=== PATIENT | female | born 1985 | race Caucasian/White ===

== ENCOUNTER → 2016-11-02 | Outpatient (CLI) | payer BC, OTHER ==
[~2016-11-02] MED LIST: ACET1TAB43 PO; ACHD5005 PO; AMLO2.5T PO; CHOL10003 PO; DOCU100C37 PO; FERR-74 PO; FLAX100031 PO; FRS325T PO; IBP600T1 PO; IBUP-1773 PO; IRON1TAB94 PO; PNV1TABL65 PO; PREN1TAB71 PO
--- NOTE | 2016-11-02 15:44 | Diagnostic Imaging Report ---
INDICATION: anatomy survey. TECHNIQUE: Multiple real-time grayscale images were obtained over the gravid uterus. COMPARISON: None. FINDINGS: There are live twin gestations which are dichorionic diamniotic per provided history. The following biometrical data for each fetus are as follows: Fetus A: Fetus A is in cephalic presentation and the amount of amniotic fluid is visually appropriate. The placenta is anteriorly located and there is no evidence of previa. Heart rate measures 160 beats per minute for fetus A. The cisterna magna, cerebral ventricles, four-chamber heart, stomach, umbilical cord insertion, and urinary bladder are normal. The spine and kidneys are suboptimally evaluated. Fetus B. Fetus B is in transverse lie and the amount of amniotic fluid is visually appropriate. Placenta is anteriorly located without previa. Heart rate is 120 beats per minute. The cerebellum, cisterna magna, four-chamber heart, stomach, kidneys, urinary bladder, and umbilical cord insertion are normal. The spine is suboptimally evaluated. IMPRESSION: 1. Live twin gestation. 2. anatomy survey is normal for both fetuses, with the exception of the spines being unable to be adequately assessed. Additionally, the kidneys of baby A were suboptimally visualized. 3. Below biometric data applies to fetus B. Biometrical measurements are as follows: Biparietal 4.6 cm, age 20 weeks 0 days. Head circumference 16.4 cm, age 19 weeks 1 days. Abdominal circumference 15.3 cm, age 20 weeks 4 days. Femur length 2.8 cm, age 18 weeks 4 days. Sonographic estimate age: 19 weeks 4 days. Sonographic estimated date of delivery: 03/25/17. Estimated Weight: 298 gm (+/- 44 gm). LMP percentile: 96%. heart rate: 160 beats per minute. number: 1 of 1. Dictated by: Dictated on workstation # [id number]
--- NOTE | 2016-11-03 08:10 | Diagnostic Imaging Report ---
INDICATION: anatomy survey TECHNIQUE: Multiple real-time grayscale images were obtained over the gravid uterus. COMPARISON: None FINDINGS: There are live twin gestations which are dichorionic diamniotic per provided history. The following biometrical data for each fetus are as follows: Fetus A: Fetus A is in cephalic presentation and the amount of amniotic fluid is visually appropriate. The placenta is anteriorly located and there is no evidence of previa. Heart rate measures 160 beats per minute for fetus A. The cisterna magna, cerebral ventricles, four-chamber heart, stomach, umbilical cord insertion, and urinary bladder are normal. The spine and kidneys are suboptimally evaluated. Fetus B. Fetus B is in transverse lie and the amount of amniotic fluid is visually appropriate. Placenta is anteriorly located without previa. Heart rate is 120 beats per minute. The cerebellum, cisterna magna, four-chamber heart, stomach, kidneys, urinary bladder, and umbilical cord insertion are normal. The spine is suboptimally evaluated. IMPRESSION: 1. Live twin gestation. 2. anatomy survey is normal for both fetuses, with the exception of the spines being unable to be adequately assessed. Additionally, the kidneys of baby A were suboptimally visualized. 3. Below biometric data applies to fetus B. Biometrical measurements are as follows: Biparietal 4.4 cm, age 19 weeks 2 days. Head circumference 15.7 cm, age 18 weeks 5 days. Abdominal circumference 13.9 cm, age 19 weeks 2 days. Femur length 2.8 cm, age 18 weeks 4 days. Sonographic estimate age: 19 weeks 0 days. Sonographic estimated date of delivery: 03/29/17. Estimated Weight: 261 gm (+/- 38 gm). LMP percentile: 72%. heart rate: 120 beats per minute. number: 1 of 1. Dictated by: Dictated on workstation # [id number]
== END ==
LOC: RAD 11:52
PROVIDERS: ATTEND Obstetrics & Gynecology
DX: O30.042 Twin pregnancy, dichorionic/diamniotic, second trimester (principal); Z3A.19 19 weeks gestation of pregnancy
CPT/HCPCS: 76805; 76810

== ENCOUNTER 2017-03-08 12:28 | Outpatient (CLI) | payer OTHER ==
[~2017-03-08] VITALS: Ht 165.1 cm; Wt 86.2 kg
[~2017-03-08 12:28] MED LIST changes: -ACET1TAB43 PO; -AMLO2.5T PO; -DOCU100C37 PO; -FERR-74 PO; -IBUP-1773 PO; -PNV1TABL65 PO
[2017-03-08] MEDS ORDERED: PNV1TABL65 PO (12:42)
[2017-03-08 12:44] VITALS: BP 142/97
[2017-03-08 14:02] LABS: PROTEIN/CREATININE RATIO 0.37
== END 2017-03-08 14:49 ==
LOC: PREOP 12:28
PROVIDERS: ATTEND Obstetrics & Gynecology
DX: Z01.818 Encounter for other preprocedural examination (principal); O30.003 Twin pregnancy, unspecified number of placenta and unspecified number of amniotic sacs, third trimester; O32.1XX1 Maternal care for breech presentation, fetus 1; Z3A.00 Weeks of gestation of pregnancy not specified
CPT/HCPCS: 82570; 84156; 87081

== ENCOUNTER 2017-03-08 16:50 | Inpatient (IN) | payer OTHER ==
[2017-03-08] VITALS (21 sets, daily range): BP systolic 126–162; BP diastolic 70–101
[~2017-03-08] VITALS: Ht 165.1 cm; Wt 86.2 kg
[~2017-03-08 16:50] MED LIST changes: +PNV1TABL65 PO
--- OUTSIDE RECORDS SUMMARY | 2017-03-08 16:57 | XMS REPORT | Continuity of Care Document ---
Author Author [employer] Organization [facility] Address Unknown Phone Unavailable Care Team Providers Care Nutrition Faculty Member Name Role Phone [employer] Unavailable Unavailable Problems Medications Allergies, Adverse Reactions, Alerts Immunizations Results Vital Signs Encounters Location Location Details Encounter Type Encounter Number Reason For Visit Attending Provider ADM Date DC Date Status Source O 02/11/2017 02/11/2017 Active [facility] Procedures Plan of Care Social History Assessment and Plan Family History Value Date Source Advance Directives Order Name Results Value Date Source
--- OUTSIDE RECORDS SUMMARY | 2017-03-08 16:58 | XMS REPORT | Encounter Summary ---
Author Author [facility] Organization [facility] Address Unknown Phone Unavailable Care Team Providers Care Cable Television Technician Name Role Phone PCP Unavailable Reason for Visit * Reason Comments Ultrasound Encounter Details Date Type Department Care Team Description 02/11/2017 Clinical [facility] Screening, , for Support Physicians - OBGYN [place]formation [place] [address] ultrasound (Primary Dx) [place] [address] Social History Tobacco Use Types Packs/Day Years Used Date Never Smoker Sex Assigned at Date Recorded Not on file as of this encounter Progress Notes * Adwoa Cardoso MA - 02/11/2017 11:00 AM CDT Minoo Cochran presents for an ultrasound encounter. Past Medical, Surgical, Family & Social History; Medications & Allergies contained in the electronic record below were not reviewed today and may not be up-to-date. Please see OBGYN report for all documentation related to this encounter. in this encounter Plan of Treatment Not on fileas of this encounter Results * ULTRASOUND [facility] ORDER (02/11/2017) Specimen Performing Laboratory IN CLINIC in this encounter Visit Diagnoses Diagnosis Screening, , for malformation by ultrasound - Primary Encounter for routine screening for malformation using ultrasonics in this encounter
--- OUTSIDE RECORDS SUMMARY | 2017-03-08 16:58 | XMS REPORT | Clinical Summary ---
Author Author [facility] Organization [facility] Address Unknown Phone Unavailable Care Team Providers Care Warhead Maintenance Specialist Name Role Phone PCP Unavailable Source Comments Some departments are not documenting in the electronic medical record. If you do not see the information that you expected, contact Release of Information in the Health Information Management department at [phone] for further assistance in locating additional records.[facility] Allergies No Known Allergies Current Medications Prescription Sig. Disp. Refills Start End Date Status Date vitamins, w/iron Take 1 tablet by mouth Active & folate 65/1 mg daily. Indications: tabIndications: CALCIUM CARBONATE Take by mouth. Active (CALCIUM 500 PO) Active Problems Problem Noted Date Dichorionic diamniotic twin in second trimester 12/17/2016 Encounters Date Type Specialty Care Team Description 02/11/2017 Clinical High Risk Screening, , for Support malformation by ultrasound (Primary Dx) 12/17/2016 Office Visit High Risk Ryder Lam DO Dichorionic diamniotic twin in second trimester 12/17/2016 Clinical High Risk Screening, , for Support malformation by ultrasound (Primary Dx) from Last 3 Months Social History Tobacco Use Types Packs/Day Years Used Date Never Smoker Currently Estimated Date of Delivery Comments Yes Sex Assigned at Date Recorded Not on file Last Filed Vital Signs Vital Sign Reading Time Taken Blood Pressure 111/57 12/17/2016 8:32 AM CDT Pulse - - Temperature - - Respiratory Rate - - Oxygen Saturation - - Inhaled Oxygen - - Concentration Weight 77.8 kg (171 lb 9.6 oz) 12/17/2016 8:32 AM CDT Height 157.5 cm (5' 2") 12/17/2016 8:32 AM CDT Body Mass Index 31.39 12/17/2016 8:32 AM CDT Plan of Treatment Health Maintenance Due Date Last Done Comments PHYSICAL (COMPREHENSIVE) 02/03/1991 EXAM PERTUSSIS VACCINE 02/03/1995 TETANUS VACCINE 02/03/2001 CERVICAL CANCER SCREENING 02/03/2014 INFLUENZA VACCINE 11/16/2016 Results * [facility]OUND [facility] ORDER (02/11/2017) Only the most recent of 2 results within the time period is included. Specimen Performing Laboratory IN CLINIC from Last 3 Months
--- OUTSIDE RECORDS SUMMARY | 2017-03-08 16:59 | XMS REPORT | Encounter Summary ---
Author Author [facility] Organization [facility] Address Unknown Phone Unavailable Care Team Providers Care Hydroelectric Station Operator Name Role Phone PCP Unavailable Reason for Visit * Reason Comments Other DI/DI Twins Encounter Details Date Type Department Care Team Description 12/17/2016 Office Visit [facility] Ryder Lam DO Dichorionic diamniotic Physicians - OBGYN [address] twin in second [address] [place] [address]28 trimester [place], [place] [id number] Social History Tobacco Use Types Packs/Day Years Used Date Never Smoker Sex Assigned at Date Recorded Not on file as of this encounter Last Filed Vital Signs Vital Sign Reading Time Taken Blood Pressure 111/57 12/17/2016 8:32 AM CDT Pulse - - Temperature - - Respiratory Rate - - Oxygen Saturation - - Inhaled Oxygen - - Concentration Weight 77.8 kg (171 lb 9.6 oz) 12/17/2016 8:32 AM CDT Height 157.5 cm (5' 2") 12/17/2016 8:32 AM CDT Body Mass Index 31.39 12/17/2016 8:32 AM CDT in this encounter Progress Notes * Ryder Lam DO - 12/17/2016 9:30 AM CDT Minoo is a 31 y/o with dichorionic, diamniotic twin gestation at 24W4D who presents for consultation at the request of Dr. Harden in [place], [place]. Minoo has had 2 previous, uncomplicated pregnancies that went to term. Neither Minoo or her report any significant family or genetic history. I outlined the risks of twin gestation which include the increased risk of and growth restriction. I also emphasized that there are no means by which one can prevent such complications. I explained the rationale for cervical length assessment at 20-22 weeks and serial scans for growth once a month beginning at 28 weeks. We also discussed the different modes of delivery based on position and delivery attendants comfort level with a twin vaginal delivery. I explained that is was safe to undergo a vaginal delivery with twins as long as the presenting twin is cephalic prior to the onset of labor. We also discussed that the best available evidence recommends delivery of dichorionic twins once 38 weeks has been achieved in the absence of any other obstetric complications. Plan: -Monitor growth Q 4 weeks -Initiate weekly surveillance at 32 weeks (either twice weekly NSTs or once weekly BPPs; once weekly BPPs with umbilical Doppler interrogation) -Deliver at 37-38 weeks GA; vaginal delivery preferred as long as presenting twin is vertex I will schedule Minoo to return to see us at 32 weeks GA to reevaluate anatomy and growth. I will leave it to Dr. Harden to decide if he would like all of the monthly growth ultrasounds to occur here at our office or if he is comfortable with them being done at his office in [place]. 15 minutes of face to face time was spent with Minoo of which >50% of that time was directed toward counseling and coordinating her care. * Nadine Fournier MA - 12/17/2016 9:30 AM CDT 1. Have you or your sexual partner traveled away from [place] in the last 12 weeks? No in this encounter Plan of Treatment Not on fileas of this encounter Visit Diagnoses Diagnosis Dichorionic diamniotic twin in second trimester Twin , antepartum in this encounter
--- OUTSIDE RECORDS SUMMARY | 2017-03-08 16:59 | XMS REPORT | Continuity of Care Document ---
Author Author [facility] Organization [facility] Address Unknown Phone Unavailable Allergies Active Description Code Type Severity Reaction Onset Reported/Identified Relationship to Patient Clinical Status Yes No Known Drug Allergies [id number] Drug Allergy Unknown N/ A 03/08/2017 Medications Problems Date Dx Coded Attending Type Code Diagnosis Diagnosed By 11/08/2016 URSZULA EDGE DO Ot O30.042 TWIN , DICHORIONIC/DIAMNIOTIC , 11/08/2016 URSZULA EDGE DO Ot Z3A.19 19 WEEKS GESTATION OF 11/10/2016 URSZULA EDGE DO Ot O30.042 TWIN , DICHORIONIC/DIAMNIOTIC , 11/10/2016 URSZULA EDGE DO Ot Z3A.19 19 WEEKS GESTATION OF 11/10/2016 URSZULA EDGE DO S Ot O30.042 TWIN , DICHORIONIC/DIAMNIOTIC , 11/10/2016 URSZULA EDGE DO S Ot Z3A.19 19 WEEKS GESTATION OF 11/10/2016 URSZULA EDGE DO Ot O30.042 TWIN , DICHORIONIC/DIAMNIOTIC , 11/10/2016 URSZULA EDGE DO S Ot Z3A.19 19 WEEKS GESTATION OF 11/12/2016 URSZULA EDGE DO Ot O30.042 TWIN , DICHORIONIC/DIAMNIOTIC , 11/12/2016 KELY MEADE URSZULA S Ot Z3A.19 19 WEEKS GESTATION OF Procedures Results Test Result Range Urine protein/creatinine mass ratio - 03/08/17 13:35 Urine protein measurement (mass/volume) 10 mg/dL 6-12 Urine creatinine measurement (mass/volume) 27 mg/dL 30-125 Urine protein/creatinine mass ratio 0.37 NRG Encounters ACCT No. Visit Date/Time Discharge Status Pt. Type Provider Facility Loc./Unit Complaint [id number] 03/08/2017 12:28:00 2016 14:49:00 DIS Outpatient URSZULA EDGE DO [facility] PREOP MALPRESENTATION/UNSTABLE LIE/TWIN [id number] 11/02/2016 11:52:00 2016 23:59:59 CLS Outpatient URSZULA EDGE DO [facility] RAD DIAMNIOTIC TWIN 2ND TRIMESTER O30.042 [id number] 10/30/2012 07:15:00 2012 10:35:00 DIS Inpatient [id number] 03/08/2017 16:50:00 ACT Inpatient URSZULA EDGE DO [facility] LDRP PREECLAMPSIA
--- OUTSIDE RECORDS SUMMARY | 2017-03-08 16:59 | XMS REPORT | Encounter Summary ---
Author Author [facility] Organization [facility] Address Unknown Phone Unavailable Care Team Providers Care Chair Inspector Name Role Phone PCP Unavailable Reason for Visit * Reason Comments Ultrasound Encounter Details Date Type Department Care Team Description 12/17/2016 Clinical [facility] Screening, , for Support Physicians [place] [address] ultrasound (Primary Dx) [place] [address] Social History Tobacco Use Types Packs/Day Years Used Date Never Smoker Sex Assigned at Date Recorded Not on file as of this encounter Progress Notes * Adwoa Cardoso MA - 12/17/2016 8:30 AM CDT Minoo Cochran presents for an ultrasound encounter. Past Medical, Surgical, Family & Social History; Medications & Allergies contained in the electronic record below were not reviewed today and may not be up-to-date. Please see OBGYN report for all documentation related to this encounter. in this encounter Plan of Treatment Not on fileas of this encounter Results * ULTRASOUND [facility] ORDER (12/17/2016) Specimen Performing Laboratory IN CLINIC in this encounter Visit Diagnoses Diagnosis Screening, , for malformation by ultrasound - Primary Encounter for routine screening for malformation using ultrasonics in this encounter
--- NOTE | 2017-03-08 17:06 | History & Physical-OB ---
OB - Chief Complaint & HPI Date/Time Date of Admission: Date of Admission: Mar 08, 2017 at 16:50 Time Seen by Provider: 16:50 Chief Complaint/History OB-Reason for Admission/Chief: Induction of Labor Hx : 3 Hx Para: 2 Expected Date of Delivery: Apr 02, 2017 Gestational Age in Weeks: 36 Gestational Age in Days: 3 Indication for induction: other (PreE, Twin gestation) Admission Nurse Assessment Rev: Yes History of Labs A pos Antibody neg RI RPR NR HBsAg NR HIV NR GC neg GBS neg Allergies and Home Medications Allergies Coded Allergies: No Known Drug Allergies (Unverified , 03/08/17) Home Medications Pnv with Ca,No.72/Iron/FA 1 Each Tablet, 1 EACH PO DAILY, (Reported) OB - History Hx of Present Care: Yes Ultrasounds: Abnormal US findings (Dichorionic/Diamniotic twin gestation) Obstetrical Complications: Pre-eclampsia, Other (Twin gestation) Medical Complications: None, Other Obstetrical History Hx Termination: No Hx Multiple Gestation: No Hx Stillbirth: No Hx Complication: No Hx Induced Hypertens: No Hx Maternal Gestational Diabet: No Delivery History Hx Dystocia: No Hx Large For Gestational Age I: No Hx Small for Gestational Age I: No Hx Section: No Hx Vaginal Delivery Post C-Sec: No Hx Blood Disorders: No Adverse Rxn to Tranfusion: No Patient Past Medical History n/a Social History/Family History HIV/AIDS: No Sexually Transmitted Disease: No Immunizations Hepatitis A: Yes Hepatitis B: Yes Tetanus Booster (TDap): Unknown OB - Admission Exam Physical Exam HEENT: NCAT Heart: Rhythm Normal Lungs: Clear Abdomen: Gravid Extremities: Normal Reflexes: Normal Cervical Dilatation: 3cm Effacement: 75% Station: -1 Membranes: Intact Heart Rate: 130's Accelerations: Accelerations Present Decelerations: No Decelerations Short Term Variability: Present Assisted Variability: Average (6-25) Contractions on Admission: 6-10 Minutes Apart Intensity: Mild OB - Assessment/Plan/Diagnosis Assessment Assessment: induction of labor Plan Plan: Induction Induction Method: per Misoprostol Protocol Discharge Diagnosis Diagnosis: 32yo @ 36.3 Di/Di Twins Mild PreE GBS neg URSZULA EDGE DO Mar 08, 2017 17:06
[2017-03-08] MEDS: D5 LR IV SOLUTION 1,000 ML IV SCH (17:27)
[2017-03-08] MEDS ORDERED: NS IV 1000 ML 1,000 ML ONE (17:28)
[2017-03-08 17:30] LABS: BASOPHILS % (AUTO) 0 % (0-10); EOSINOPHILS % (AUTO) 1 % (0-10); LYMPHOCYTES # (AUTO) 1.8 X 10^3 (1.0-4.0); LYMPHOCYTES % (AUTO) 22 % (12-44); MEAN CORPUSCULAR HEMOGLOBIN 29 PG (25-34); MEAN CORPUSCULAR HGB CONC 34 G/DL (32-36); MEAN CORPUSCULAR VOLUME 86 FL (80-99); MEAN PLATELET VOLUME 13.2 FL (7.4-10.4); MONOCYTES % (AUTO) 12 % (0-12); NEUTROPHILS # (AUTO) 5.5 X 10^3 (1.8-7.8); NEUTROPHILS % (AUTO) 66 % (42-75); PLATELET COUNT 139 10^3/uL (130-400); RED BLOOD COUNT 4.53 10^6/uL (4.35-5.85); RED CELL DISTRIBUTION WIDTH 13.5 % (10.0-14.5); WHITE BLOOD COUNT 8.3 10^3/uL (4.3-11.0)
[2017-03-08] MEDS ORDERED: NS IV 500 ML 500 ML IV ONE (17:30)
[2017-03-08] MEDS ORDERED: MISOPROSTOL 100 MCG (CYTOTEC) TAB PO NR (18:15)
[2017-03-08] MEDS ORDERED: INFLUENZA TRIvalent 2017-2018 0.5 ML/45 MCG SYR IM ONE (18:30)
[2017-03-08] MEDS ORDERED: SUFENTA 0.6MCG/ML BUPIVA 0.125 100 ML ONE (21:59)
[2017-03-08] MEDS ORDERED: CATHETER FLUSH 10 ML SYR IV SCH (22:00)
[2017-03-08] MEDS ORDERED: fentaNYL INJECTION 100 MCG/2 ML AMP ONE (22:14)
[2017-03-08] MEDS ORDERED: LIDOCAINE PF 2% 5 ML (XYLOCAINE) VIAL ONE (22:14)
[2017-03-08] MEDS ORDERED: BUPIVACAINE 0.25% 30 ML (SENSORCAINE) VIAL ONE (22:14)
[2017-03-08] MEDS ORDERED: LACTATED RINGERS 1,000 ML IV SCH (22:55)
[2017-03-08] MEDS: EPIDURAL (SUFENTA 0.6MCG/ML BUPIVA 0.125%) 100 ML BAG EPI PRN (22:55)
[2017-03-08] MEDS ORDERED: ONDANSETRON 4 MG/2 ML (SDV) Z0FRAN IV PRN (23:00)
[2017-03-08] MEDS ORDERED: diphenhydrAMINE 50 MG/ML INJ (BENADRYL) IV PRN (23:00)
[2017-03-08] MEDS ORDERED: NALOXONE 0.4 MG/ML 1 ML (NARCAN) VIAL IV PRN (23:00)
[2017-03-09] VITALS (59 sets, daily range): BP systolic 111–171; BP diastolic 61–98
[2017-03-09] MEDS: D5 LR IV SOLUTION 1,000 ML IV SCH ×2 (01:10→08:16)
[2017-03-09] MEDS ORDERED: OXYTOCIN/NORMAL SALINE 500 ML IV ONE (06:08)
[2017-03-09] MEDS ORDERED: OXYTOCIN/NORMAL SALINE 500 ML IV SCH ×2 (06:20→12:10)
[2017-03-09] MEDS: EPIDURAL (SUFENTA 0.6MCG/ML BUPIVA 0.125%) 100 ML BAG EPI PRN (06:37)
[2017-03-09] MEDS ORDERED: CARBOPROST (HEMABATE) 250 MCG/ML AMP IM ONE (11:11)
[2017-03-09] MEDS ORDERED: TETANUS,DIPTH,PERTUSS P/F (BOOSTRIX) 0.5 ML VIAL IM ONE (12:15)
[2017-03-09] MEDS ORDERED: DIBUCAINE (NUPERCAINAL) 1% OINT 30 GM TOP PRN (12:15)
[2017-03-09] MEDS ORDERED: MEASLES,MUMPS,RUBELLA 1 EA INJ SQ ONE (12:15)
--- NOTE | 2017-03-09 12:16 | OB Labor & Delivery Record ---
L&D History Date of Service Date of Service: Mar 09, 2017 History Expected Date of Delivery: Apr 02, 2017 Gestational Age in Weeks: 36 Hx : 3 Hx Para: 2 Complications Events: Routine care (Mild PreE at 36 weeks with Di Di Twins) Operative Indications (Cesarea: N/A-Vaginal Delivery Intrapartal Events: None L&D Stage1 Stage One Onset of Labor - Date: Mar 09, 2017 Monitors and Tracing Monitor Mode: External Heart Rate: 130 Monitor Accelerations: Uniform Monitor Decelerations: Variable Station: -2 Shelter Variability: Average (6-10) Short Term Variability: Present Presentation: Vertex Vital Signs VS - Last 72 Hours, by Label 03/08/17 03/08/17 03/08/17 03/08/17 18:10 19:30 22:30 22:36 Temp 96.6 97.7 Pulse 72 73 62 78 Resp 18 18 18 18 B/P (MAP) 140/93 158/91 139/87 143/87 Pulse Ox 99 97 O2 Delivery Room Air 03/08/17 03/08/17 03/08/17 03/08/17 22:39 22:42 22:45 22:48 Pulse 75 86 85 90 Resp 18 18 18 18 B/P (MAP) 146/93 156/101 162/86 161/92 Pulse Ox 99 99 98 98 03/08/17 03/08/17 03/08/17 03/08/17 22:51 22:54 22:58 23:01 Pulse 75 74 71 92 Resp 18 18 18 18 B/P (MAP) 154/79 160/86 161/82 127/77 Pulse Ox 98 98 98 98 03/08/17 03/08/17 03/08/17 03/08/17 23:04 23:07 23:10 23:13 Pulse 67 83 87 91 Resp 18 18 18 18 B/P (MAP) 131/73 134/85 158/89 156/77 Pulse Ox 98 98 98 98 03/08/17 03/08/17 03/08/17 03/08/17 23:19 23:22 23:24 23:30 Pulse 64 62 73 72 Resp 18 18 18 18 B/P (MAP) 128/70 130/74 127/75 126/72 Pulse Ox 98 97 97 98 11/21/17 03/09/17 03/09/17 03/09/17 23:45 00:00 00:15 00:30 Pulse 64 84 83 68 Resp 18 18 18 18 B/P (MAP) 128/74 120/72 130/77 116/63 Pulse Ox 97 98 98 97 03/09/17 03/09/17 03/09/17 03/09/17 00:45 01:00 01:15 01:30 Temp 96.9 Pulse 83 68 68 78 Resp 18 18 18 18 B/P (MAP) 117/61 111/64 132/75 144/67 Pulse Ox 98 96 98 98 03/09/17 03/09/17 03/09/17 03/09/17 01:45 02:00 02:15 02:30 Pulse 68 62 61 62 Resp 18 18 18 18 B/P (MAP) 116/65 115/68 115/71 111/68 Pulse Ox 98 97 97 97 03/09/17 03/09/17 03/09/17 03/09/17 02:45 03:00 03:15 03:30 Pulse 65 53 52 56 Resp 18 18 18 18 B/P (MAP) 120/77 117/75 120/70 125/77 Pulse Ox 98 97 98 98 03/09/17 03/09/17 03/09/17 03/09/17 03:45 04:00 04:15 04:30 Temp 96.9 Pulse 58 55 60 57 Resp 18 18 18 18 B/P (MAP) 121/76 122/74 124/78 112/71 Pulse Ox 99 98 98 98 03/09/17 03/09/17 03/09/17 03/09/17 04:45 05:00 05:15 05:30 Pulse 65 59 61 57 Resp 18 18 18 18 B/P (MAP) 130/79 113/78 124/76 134/79 Pulse Ox 99 99 99 99 03/09/17 03/09/17 03/09/17 03/09/17 05:45 06:00 06:15 06:30 Pulse 64 62 62 62 Resp 18 18 18 18 B/P (MAP) 117/76 117/77 124/77 129/81 Pulse Ox 98 98 99 98 03/09/17 03/09/17 03/09/17 03/09/17 06:45 07:00 07:15 07:30 Temp 96.6 Pulse 73 61 62 62 Resp 18 18 18 18 B/P (MAP) 140/79 140/90 141/77 171/87 Pulse Ox 98 03/09/17 03/09/17 03/09/17 03/09/17 07:45 08:00 08:15 08:30 Pulse 73 58 65 Resp 16 16 16 16 B/P (MAP) 137/89 142/86 147/96 03/09/17 03/09/17 03/09/17 03/09/17 08:45 09:00 09:15 09:30 Temp 96.3 Pulse 71 66 66 86 Resp 20 20 20 16 B/P (MAP) 149/84 138/81 156/85 138/93 03/09/17 03/09/17 03/09/17 09:45 10:00 10:15 Pulse 75 83 67 Resp 16 16 16 B/P (MAP) 142/91 135/81 143/81 Rupture of Membranes Spontaneous Ruture of Membrane: Yes Amniotic Membrane Rupture Time: 0800 Amniotic Membrane Fluid Desc.: Clear Induction/Anesthesia Epidural Cath Placement - Time: 2247 Progress/Notes Monitoring of twins was performed intrapartum of both by both scalp electrode and external auscultation. Fetus a had occasional variable decelerations but overall a reassuring tracing, and fetus B had a reactive tracing the integrity of labor. L&D Stage2 Stage Two Stage II Date: Mar 09, 2017 Monitors and Tracing Monitor Mode: External Heart Rate: 130 Monitor Accelerations: Uniform Monitor Decelerations: Variable Trust Operations Assistant Variability: Average (6-10) Short Term Variability: Present Position: Right Occiput Anterior Cord Descript/Complications Complications Fetus a was delivered L OP over intact perineum and a first-degree midline perineal laceration was noted. Anterior posterior shoulders delivered and the was brought onto the mother's abdomen where the cord was doubly clamped and cut and marked with 1 cord clamp. Cord blood is collected. Amniotomy is performed of the second presenting twin. Clear fluid is noted at time of rupture. Maternal pushing commenced shortly thereafter, after 2 maternal pushes the delivered ROP over the same with no extension in laceration. The anterior posterior shoulder delivered incidences brought onto maternal abdomen where the cord is doubly clamped and cut and marked with 2 cord clamps. Cord blood is collected. Intact placenta is delivered spontaneously thereafter. IV Pitocin is initiated to facilitate uterine contractions Delivery Type Delivery Method: Spontaneous Vaginal Anterior Shoulder: Right Episiotomy/Perineal Laceration Laceraction(s)/Extensions: Yes Episiotomy Description: Midline, Perineal Extension/lac, 1st degree Degree (describe repair) Midline perineal laceration repaired using 3-0 repeat Vicryl suture in usual fashion Condition of Infant Delivery 1 minute Comment: 8,8 5 minute Comment: 9,9 Condition of Infant Condition of : Living Exam: No Observed Abnormalities Live male infants baby A weighing 6 lbs. 12 oz. Apgars of 8 and 9, baby B measuring 7 lbs. 12 oz. Apgars of 8 and 9 Resuscitation Resuscitation: N/A - Spontaneous Resp L&D Stage3 Stage Three Stage III Date: Mar 09, 2017 Pictocin Pitocin Administration mu/min: 2 Pitocin ml/hr: 6 Pitocin Administration Comment: Pitocin started per dr order Placenta Delivery Placenta Delivery: Spontaneous Delivery Summary Summary Estimated blood loss (mL): 400 Attending at delivery: Zeb Edge DO Condition of Delivery Examined: Cervix Examined, Uterus Explored Post Hemorrhage: No Condition of Mother stable Condition of Infant (s) stable ZEB EDGE DO Mar 09, 2017 12:16
--- NOTE | 2017-03-09 12:42 | Anesthesia-Regional Post-Op ---
Regional Patient Condition Mental Status: Alert, Oriented x3 Circulation: Same as Pre-Op Headache: Absent Sensation: Full Recovery Motor Block: Absent Post Op Complications Complications None Follow Up Care/Instructions Patient Instructions None needed. Anesthesia/Patient Condition Patient is doing well, no complaints, stable vital signs, no apparent adverse anesthesia problems. No complications reported per nursing. D/C home per [facility] Criteria: No RJ CISNEROS CRNA Mar 09, 2017 12:42
[2017-03-09] MEDS: IBUPROFEN 600 MG (MOTRIN) TAB PO SCH ×3 (13:02→23:48)
[2017-03-09] MEDS: WITCH HAZEL(TUCKS) 40 EA JAR TOP PRN (13:03)
[2017-03-09] MEDS: BENZOCAINE/MENTHOL (DERMOPLAST) 56 ML CAN TP PRN (13:03)
[2017-03-09] MEDS ORDERED: CATHETER FLUSH 10 ML SYR IV SCH (14:00)
[2017-03-09] MEDS: DOCUSATE SODIUM 100 MG (COLACE) CAP PO SCH (23:48)
[2017-03-10 03:32] VITALS: BP 142/83
[2017-03-10 04:00] VITALS: BP 139/90
[2017-03-10] MEDS: APAP 300 MG/CODEINE 30 MG (TYLENOL #3) TAB PO PRN ×5 (04:13→22:09)
[2017-03-10 05:29] LABS: BASOPHILS % (AUTO) 0 % (0-10); EOSINOPHILS # (AUTO) 0.1 10^3/uL (0.0-0.3); EOSINOPHILS % (AUTO) 2 % (0-10); LYMPHOCYTES % (AUTO) 26 % (12-44); MEAN CORPUSCULAR HEMOGLOBIN 29 PG (25-34); MEAN CORPUSCULAR HGB CONC 34 G/DL (32-36); MEAN CORPUSCULAR VOLUME 87 FL (80-99); MEAN PLATELET VOLUME 12.8 FL (7.4-10.4); MONOCYTES % (AUTO) 13 % (0-12); NEUTROPHILS # (AUTO) 4.4 X 10^3 (1.8-7.8); NEUTROPHILS % (AUTO) 59 % (42-75); PLATELET COUNT 110 10^3/uL (130-400); RED BLOOD COUNT 4.09 10^6/uL (4.35-5.85); RED CELL DISTRIBUTION WIDTH 13.4 % (10.0-14.5); WHITE BLOOD COUNT 7.5 10^3/uL (4.3-11.0)
[2017-03-10] MEDS: IBUPROFEN 600 MG (MOTRIN) TAB PO SCH ×3 (06:15→17:59)
[2017-03-10 08:10] VITALS: BP 141/82
[2017-03-10] MEDS: DOCUSATE SODIUM 100 MG (COLACE) CAP PO SCH ×2 (08:24→21:03)
[2017-03-10] MEDS: FERROUS SULF 325 MG (IRON) TAB PO SCH (08:24)
[2017-03-10] MEDS: PRENATAL VITAMIN 1 EA TAB PO SCH (08:24)
--- NOTE | 2017-03-10 09:38 | Discharge Inst-Women's Service ---
Discharge Inst-Women's Serv Depart Medication/Instructions New, Converted or Re-Newed RX: RX on Chart Consults/Follow Up Additional Follow Up: Yes Orders/Referrals Dr. Edge in 6 weeks Activity Activity: Activity as Tolerated Driving Instructions: No Driving for 1 Week NO SMOKING: NO SMOKING Nothing Inside Vagina: No Douching, No Celina, No Tampons Diet Discharge Diet: No Restrictions Symptoms to Report to : Bleeding Excessive, Pain Increased, Fever Over 101 Degrees F, Vaginal Bleeding Increase, Questions/Concerns For Any Problems or Questions: Contact Your Physician Skin/Wound Care Bathing Instructions: Shower (x 2 weeks or sitz bath) URSZULA EDGE DO Mar 10, 2017 9:38 am
[2017-03-10] MEDS ORDERED: IBUP-1773 PO (09:40)
[2017-03-10] MEDS ORDERED: ACET1TAB43 PO (09:40)
[2017-03-10] MEDS ORDERED: FERR-74 PO (09:40)
[2017-03-10] MEDS ORDERED: DOCU100C37 PO (09:40)
--- NOTE | 2017-03-10 09:57 | Progress Note-Standard ---
Standard Progress Note Progress Notes/Assess & Plan Date Seen by Provider: Mar 10, 2017 Time Seen by Provider: 09:45 Progress/Assessment & Plan Patient doing well, no concerns voiced. Ambulating and voiding freely. Vital Sign - Last 24 Hours 03/09/17 03/09/17 03/09/17 03/09/17 10:00 10:15 10:30 10:45 Temp 97.0 Pulse 83 67 67 64 Resp 16 16 16 16 B/P (MAP) 135/81 143/81 137/82 129/75 03/09/17 03/09/17 03/09/17 03/09/17 10:56 11:15 11:33 11:47 Temp 97.6 Pulse 72 83 80 Resp 16 18 18 B/P (MAP) 140/88 134/69 135/90 03/09/17 03/09/17 03/09/17 03/09/17 12:11 12:25 12:40 12:58 Pulse 67 69 70 74 Resp 18 18 18 20 B/P (MAP) 151/96 146/77 147/85 151/97 03/09/17 03/09/17 03/09/17 03/09/17 13:25 13:41 13:55 14:10 Pulse 79 79 69 75 Resp 20 20 20 16 B/P (MAP) 166/94 165/98 142/73 146/81 03/09/17 03/09/17 03/09/17 03/09/17 14:25 14:41 14:55 21:40 Temp 99.2 Pulse 82 75 77 64 Resp 16 16 16 16 B/P (MAP) 146/84 148/76 146/76 146/92 Pulse Ox 96 03/09/17 03/10/17 03/10/17 23:50 04:00 08:10 Temp 98.1 97.8 98.4 Pulse 72 55 66 Resp 16 16 16 B/P (MAP) 142/83 139/90 141/82 Pulse Ox 97 96 96 Uterine fundus firm and palpated below umbilicus Laboratory Tests Test 03/10/17 05:20 Range/Units White Blood Count 7.5 4.3-11.0 10^3/uL Red Blood Count 4.09 L 4.35-5.85 10^6/uL Hemoglobin 11.9 11.5-16.0 G/DL Hematocrit 36 35-52 % Mean Corpuscular Volume 87 80-99 FL Mean Corpuscular Hemoglobin 29 25-34 PG Mean Corpuscular Hemoglobin Concent 34 32-36 G/DL Red Cell Distribution Width 13.4 10.0-14.5 % Platelet Count 110 L 130-400 10^3/uL Mean Platelet Volume 12.8 H 7.4-10.4 FL Neutrophils (%) (Auto) 59 42-75 % Lymphocytes (%) (Auto) 26 12-44 % Monocytes (%) (Auto) 13 H 0-12 % Eosinophils (%) (Auto) 2 0-10 % Basophils (%) (Auto) 0 0-10 % Neutrophils # (Auto) 4.4 1.8-7.8 X 10^3 Lymphocytes # (Auto) 2.0 1.0-4.0 X 10^3 Monocytes # (Auto) 1.0 0.0-1.0 X 10^3 Eosinophils # (Auto) 0.1 0.0-0.3 10^3/uL Basophils # (Auto) 0.0 0.0-0.1 10^3/uL Diagnosis: PPD 1 NVD of Twins Labile BP control- PreE P: Continue routine PP care BP monitoring Anticipate dc tomorrow URSZULA EDGE DO Mar 10, 2017 9:56 am
[2017-03-10 12:35] VITALS: BP 165/92
[2017-03-10 16:27] VITALS: BP 137/83
[2017-03-10 21:00] VITALS: BP 149/91
[2017-03-11] VITALS: BP 148/88
[2017-03-11] MEDS: IBUPROFEN 600 MG (MOTRIN) TAB PO SCH ×3 (00:01→11:57)
[2017-03-11] MEDS: APAP 300 MG/CODEINE 30 MG (TYLENOL #3) TAB PO PRN (06:42)
[2017-03-11 06:45] VITALS: BP 156/89
--- NOTE | 2017-03-11 07:15 | Progress Note-Standard ---
Standard Progress Note Progress Notes/Assess & Plan Date Seen by Provider: Mar 11, 2017 Time Seen by Provider: 07:40 Progress/Assessment & Plan Patient doing well, no concerns voiced. Ambulating and voiding freely. Vital Sign - Last 24 Hours 03/10/17 03/10/17 03/10/17 03/10/17 08:10 12:35 16:27 21:00 Temp 98.4 98.9 98.5 97.1 Pulse 66 64 60 62 Resp 16 16 16 18 B/P (MAP) 141/82 165/92 137/83 149/91 Pulse Ox 96 95 97 03/11/17 03/11/17 00:00 06:45 Temp 97.2 97.7 Pulse 60 66 Resp 18 18 B/P (MAP) 148/88 156/89 Diagnosis: PPD 2 NVD of Twins Labile BP control- PreE P: Continue routine PP care Starting Norvasc 2.5 mg today Repeat CBC to assure stabilization of platelets Anticipate dc today URSZULA EDGE DO Mar 11, 2017 07:15
[2017-03-11] MEDS ORDERED: AMLO2.5T PO (07:16)
[2017-03-11 07:29] LABS: RED BLOOD COUNT 4.26 10^6/uL (4.35-5.85); RED CELL DISTRIBUTION WIDTH 13.6 % (10.0-14.5); WHITE BLOOD COUNT 6.5 10^3/uL (4.3-11.0)
[2017-03-11] MEDS: FERROUS SULF 325 MG (IRON) TAB PO SCH (07:56)
[2017-03-11] MEDS ORDERED: INFLUENZA TRIvalent 2017-2018 0.5 ML/45 MCG SYR IM ONE (08:29)
[2017-03-11 08:40] VITALS: BP 156/84
[2017-03-11] MEDS: PRENATAL VITAMIN 1 EA TAB PO SCH (08:41)
[2017-03-11] MEDS: DOCUSATE SODIUM 100 MG (COLACE) CAP PO SCH (08:41)
[2017-03-11] MEDS ORDERED: amLODIPine 2.5MG (NORVASC) TAB PO SCH (09:00)
[2017-03-11] MEDS: BENZOCAINE/MENTHOL (DERMOPLAST) 56 ML CAN TP PRN (11:59)
[2017-03-11] MEDS: WITCH HAZEL(TUCKS) 40 EA JAR TOP PRN (11:59)
== END 2017-03-11 12:00 | disposition home or self-care (01) | DRG 775 ==
LOC: LDRP 16:50
PROVIDERS: ADMIT Obstetrics & Gynecology; ATTEND Obstetrics & Gynecology
PROC: 10E0XZZ Delivery of Products of Conception, External Approach (ICD-10-PCS; principal; 2017-03-09)
PROC: 0W8NXZZ Division of Female Perineum, External Approach (ICD-10-PCS; 2017-03-09)
PROC: 0HQ9XZZ Repair Perineum Skin, External Approach (ICD-10-PCS; 2017-03-09)
DX: O14.04 Mild to moderate pre-eclampsia, complicating childbirth (principal); O30.043 Twin pregnancy, dichorionic/diamniotic, third trimester; O70.0 First degree perineal laceration during delivery; O64 Obstructed labor due to malposition and malpresentation of fetus; O64.0XX2 Obstructed labor due to incomplete rotation of fetal head, fetus 2; Z37.2 Twins, both liveborn; Z3A.36 36 weeks gestation of pregnancy; Z23 Encounter for immunization
CPT/HCPCS: 36415; 85025; 85027; 86850; 86900; 86901